=== PATIENT | female | born 1980 | race African-American/Black ===

== ENCOUNTER 2024-09-27 03:03 | Inpatient (IN) | payer OTHER, SELFPAY ==
[2024-09-26 19:55] VITALS: BP 155/87
[2024-09-26 20:23] LABS: Urine Albumin 1+ (Neg - Trace); Urine Bilirubin Negative (Negative); Urine Character Clear (Clear); Urine Color Yellow; Urine Glucose Negative (Negative); Urine Ketone 3+ (Negative); Urine Leukocyte 2+ (Negative); Urine Nitrite Negative (Negative); Urine Occult Blood 2+ (Negative); Urine Urobilinogen 1+ (Neg - 1+)
[2024-09-26 20:34] LABS: HCG, Serum Qualitative Screen Negative
[2024-09-26 20:34] LABS: COVID-19 Antigen Negative (Negative)
[2024-09-26 20:39] LABS: ALT (SGPT) 17 U/L (0-35); AST (SGOT) 19 U/L (14-36); Albumin 4.1 g/dl (3.5-5.0); Alkaline Phosphatase 76 U/L (38-126); Blood Urea Nitrogen 7 mg/dl (7-17); Calcium 9.5 mg/dl (8.4-10.2); Carbon Dioxide 25 mmol/L (22-30); Chloride 97 mmol/L (98-107); Glucose 103 mg/dl (70-99); Potassium 4.4 mmol/L (3.5-5.1); Sodium 132 mmol/L (135-145); Total Bilirubin 0.9 mg/dl (0.2-1.3); Total Protein 7.6 g/dl (6.3-8.2); eGFR > 60.00
[2024-09-26 20:40] LABS: Lipase 46 U/L (23-300)
[2024-09-26 20:40] LABS: Urine Squamous Cell 26-30 /LPF (Few)
[2024-09-26 20:41] LABS: Urine Bacteria Few (Negative); Urine White Cell 40-50 /HPF (0-5)
[2024-09-26 21:07] LABS: % Basophils 0.4 % (0-2); % Eosinophils 0.2 % (0-6); % Immature Granulocytes 0.5 % (0-0.5); % Lymphocytes 9.9 % (20.5-51.1); % Monocytes 6.2 % (1.7-9.3); % Neutrophils 82.8 % (42.2-75.2); Absolute Basophils 0.1 10^3/uL (0-0.2); Absolute Immature Granulocytes 0.1 10^3/uL (0-0.05); Absolute Lymphocytes 1.3 10^3/uL (1.2-3.4); Absolute Monocytes 0.8 10^3/uL (0.1-0.6); Absolute Neutrophils 10.9 10^3/uL (1.4-6.5); Hematocrit 33.1 % (37.0-47.0); Hemoglobin 10.1 g/dL (12.0-16.0); Mean Corp Hgb Conc. 30.5 g/dL (33.0-37.0); Mean Corpuscular Hgb 23.1 pg (27.0-31.0); Mean Corpuscular Volume 75.7 fL (81.0-99.0); Mean Platelet Volume 9.1 fL (7.4-10.4); Nucleated Red Blood Cells % 0 %; Platelet Count 402 10^3/uL (130-400); Red Blood Cell Count 4.37 10^6/uL (4.20-5.40); White Blood Cell Count 13.2 10^3/uL (4.8-10.8)
[2024-09-26 21:10] LABS: Anisocytosis 2+; Macrocytosis 2+; Normal RBC Morphology No
[2024-09-26 21:11] LABS: Polychromasia Occasional; Spherocytes 1+; Stomatocytes 1+; Target Cells 2+
--- NOTE | 2024-09-26 21:17 | ED.GENMED ---
History of Present Illness
<Mell Campos PA-C - Last Filed: 09/27/24 12:04>
General
Chief Complaint: Abdominal Symptoms
Source: patient
Exam Limitations: none
Time Seen by Provider: 09/26/24 20:44
Nursing documentation reviewed up to this point in time: agreed with
History of Present Illness
History of Present Illness:
Patient is a 44-year-old female presenting to the emergency department for evaluation of left lower abdominal pain. Patient states symptoms started gradually on Wednesday although have persisted. She states pain initially started as a dull ache
although has worsened and become more constant. Patient denies any radiation of pain into her back although she has felt some radiation into her left leg today. Patient states she felt very 'chilly 'and felt as if she had a fever. Patient denies
any dysuria or hematuria. Patient denies any abnormal vaginal discharge or bleeding. No chest pain or shortness of breath. No diarrhea or constipation.
Patient does have a history of anemia for which she receives intermittent blood transfusions under the care of a zigzag elastic attacher.
Patient states she has not seen an ADAPTED PHYSICAL EDUCATION TEACHER since her son was born 14 years ago.
Past History
<Mell Campos PA-C - Last Filed: 09/27/24 12:04>
Past History
ED Past Medical History: None
ED Past Surgical History: Cholecystectomy, and Other (Gastric bypass)
Social History
Personal:
Living: with family
Employment: Employed
Review of Systems
<Mell Campos PA-C - Last Filed: 09/27/24 12:04>
Review of Systems
Allergies reviewed?: Yes
All Other Systems: ROS reviewed and negative except as documented in HPI and ROS
Phy Exam
<Mell Campos PA-C - Last Filed: 09/27/24 12:04>
Physical Exam
Physical Exam:
Vitals: Temp 100.5. Mildly tachycardic.
General: Patient is in mild distress due to pain.
Skin: Warm and dry, no rashes or lesions
Head: Normocephalic, atraumatic
Eyes: Sclera nonicteric. EOMs intact. No nystagmus.
Throat: Protecting airway
Neck: Normal ROM, no cervical spine tenderness, no meningismus
Cardiac: Regular rate and rhythm, no murmurs.
Pulm: Normal respiratory effort, no wheezes, rales, rhonchi heard on exam.
Abdomen: Large body habitus. Abdomen soft. Mild tenderness in left lower abdomen/suprapubic region without rebound tenderness or guarding. No CVA tenderness bilaterally
Pelvic: Bimanual exam limited due to body habitus although no CMT elicited
Extremities: No evidence of cyanosis or edema. Palpable DP pulses bilateral
Neuro: AAOx3. Grossly intact.
Psychiatric: Normal affect.
Course
<Mell Campos PA-C - Last Filed: 09/27/24 12:04>
Orders/Labs/Results
Orders:
Orders
09/26/24 19:56
Test Result ONCE
09/26/24 20:05
COVID-19 Antigen Urgent
Source: Nasal Swab
Influenza A+B Rapid Molecular Urgent
FELICITAS Source: Nasal Swab
Specimen Description:
09/26/24 20:06
C-Reactive Protein Urgent
Comment: ADDED
Complete Blood Count/With Diff Urgent
Comprehensive Metabolic Panel Urgent
HCG, Serum Qualitative Screen Urgent
Lipase Urgent
09/26/24 20:13
Urinalysis Reflex To Culture Urgent
Date Specimen was Collected: 09/26/24
Time Specimen was Collected: 19:56
Urine Microscopic Reflex Cult Urgent
Urine Culture Urgent
FELICITAS Source: U
Specimen Description:
Date Specimen was Collected: 09/26/24
Time Specimen was Collected: 19:56
09/26/24 21:16
0.9% Sodium Chloride 1000 ml [Nss] 1,000 ml IV BOLUS
Ketorolac [Toradol] 15 mg IV NOW STA
09/26/24 21:17
CT Abd/Pel (IV only)-DH only Urgent
Comment:
Reason For Exam: LLQ pain, fever
09/26/24 21:43
Lactic Acid Q4H
Comment: CANCEL 2nd LACTIC ACID IF 1st LACTIC ACID IS LESS THAN 2
09/26/24 23:13
US Pelvis Only (non-obstetric) Urgent
Comment:
Reason For Exam: eval for torsion; abnormal CT
09/26/24 23:28
Acetaminophen [Tylenol] 1,000 mg PO NOW STA
09/27/24 00:43
Add On- LAB Urgent
Tests Added?: gc/chlamydia URINE by PCR
09/27/24 00:57
Add On- LAB Urgent
Tests Added?: cRP
09/27/24 02:03
CefTRIAXone [Rocephin] 1,000 mg IV NOW STA
Doxycycline [Vibramycin] 100 mg PO NOW STA
MetroNIDAZOLE 500 MG/100 ML [Flagyl 500 mg] 100 ml IV NOW
09/27/24 02:28
Admit/Transfer Patient As Directed
Co-Sign Provider:
Level of Care: Inpatient admission
Assign to:: Medical/Surgical
Physician / Group: [facility]
Transfer to: Medical/Surgical
Diagnosis: PID/TOA
Patient Condition: Good
Reason for Hospitalization: iv abx
Expected length of stay greater than two midnights?: No
ELOS- Estimated Length of Stay in days: 2
I certify the patient meets the requirements for IP care: Yes
PRN Pain Medication Management As Directed
May give lesser potent ordered pain med per pt: Yes
preference::
Protocol:: Medication orders for pain may be administered in a
manner that supports deferring to patient preference
when the pt is:
- Requesting an ordered lesser potent pain medication.
Least to most potent pain medications are defined
as: acetaminophen < NSAID < tramadol < opioids
(morphine, oxycodone, hydromorphone).
- Requesting a lesser dose of the same medication IF
ORDERED.
- Requesting a less intrusive route of administration
if both routes are prescribed by the provider (PO <
IV).
09/27/24 04:00
Acetaminophen [Tylenol] 1,000 mg PO Q6HPRN PRN
Ibuprofen [Motrin] 600 mg PO Q6HPRN PRN
Venous Foot Pumps DIRECTED
Location: Bilateral feet
09/27/24 04:00
DX Deep Vein Thrombosis Video Routine
09/27/24 Breakfast
Regular
At Your Request: Full Participation
Does patient need a safe tray?: No
09/27/24 07:52
Complete Blood Count/With Diff IN AM
09/27/24 08:00
Doxycycline [Vibramycin] 100 mg PO Q12
MetroNIDAZOLE [Flagyl] 500 mg PO BID
09/27/24 12:00
MetroNIDAZOLE 500 MG/100 ML [Flagyl 500 mg] 100 ml IV Q12H
09/27/24 20:06
Chlamydia/GC by PCR Urgent
FELICITAS Source: U
Specimen Description:
Source:: URINE
Date Specimen was Collected: 09/26/24
Time Specimen was Collected: 19:56
Comment: Add on per Omar Franklin
09/28/24 00:00
CefTRIAXone [Rocephin] 1,000 mg IV Q24H
Abnormal Lab Results
09/26/24 09/26/24
20:06 20:13
WBC 13.2 H 10^3/uL
(4.8-10.8)
Hgb 10.1 L g/dL
(12.0-16.0)
Hct 33.1 L %
(37.0-47.0)
MCV 75.7 L fL
(81.0-99.0)
MCH 23.1 L pg
(27.0-31.0)
MCHC 30.5 L g/dL
(33.0-37.0)
Plt Count 402 H 10^3/uL
(130-400)
Abs Immat Gran (auto) 0.1 H 10^3/uL
(0-0.05)
Absolute Neuts (auto) 10.9 H 10^3/uL
(1.4-6.5)
Absolute Monos (auto) 0.8 H 10^3/uL
(0.1-0.6)
Neutrophils % 82.8 H %
(42.2-75.2)
Lymphocytes % 9.9 L %
(20.5-51.1)
Sodium 132 L mmol/L
(135-145)
Chloride 97 L mmol/L
(98-107)
Glucose 103 H mg/dl
(70-99)
C-Reactive Protein 136.50 H mg/L
(0.0-10.00)
Urine Ketones 3+ A
(Negative)
Ur Occult Blood Reflex 2+ A
(Negative)
Leukocyte Esterase Rfl 2+ A
(Negative)
Urine RBC 7-10 A /HPF
(0-2)
Urine WBC (Reflex) 40-50 A /HPF
(0-5)
Urine Bacteria (Reflex) Few A
(Negative)
Urine Albumin (Reflex) 1+ A
(Neg - Trace)
09/26/24 20:06
09/26/24 20:06
Vital Signs
Initial and Last Documented VS:
Initial Vital Signs
Temp Pulse Resp BP Pulse Ox
100.5 F H 106 18 155/87 100
09/26/24 19:55 09/26/24 19:55 09/26/24 19:55 09/26/24 19:55 09/26/24 19:55
Last Documented Vital Signs
Temp Pulse Resp BP Pulse Ox
97.9 F 81 18 135/75 100
09/27/24 07:00 09/27/24 07:00 09/27/24 07:00 09/27/24 07:00 09/27/24 07:00
<Omar Franklin DO - Last Filed: 09/27/24 02:48>
Orders/Labs/Results
Orders:
Orders
09/26/24 19:56
Test Result ONCE
09/26/24 20:05
COVID-19 Antigen Urgent
Source: Nasal Swab
Influenza A+B Rapid Molecular Urgent
FELICITAS Source: Nasal Swab
Specimen Description:
09/26/24 20:06
C-Reactive Protein Urgent
Comment: ADDED
Complete Blood Count/With Diff Urgent
Comprehensive Metabolic Panel Urgent
HCG, Serum Qualitative Screen Urgent
Lipase Urgent
09/26/24 20:13
Urinalysis Reflex To Culture Urgent
Date Specimen was Collected: 09/26/24
Time Specimen was Collected: 19:56
Urine Microscopic Reflex Cult Urgent
Urine Culture Urgent
FELICITAS Source: U
Specimen Description:
Date Specimen was Collected: 09/26/24
Time Specimen was Collected: 19:56
09/26/24 21:16
0.9% Sodium Chloride 1000 ml [Nss] 1,000 ml IV BOLUS
Ketorolac [Toradol] 15 mg IV NOW STA
09/26/24 21:17
CT Abd/Pel (IV only)-DH only Urgent
Comment:
Reason For Exam: LLQ pain, fever
09/26/24 21:43
Lactic Acid Q4H
Comment: CANCEL 2nd LACTIC ACID IF 1st LACTIC ACID IS LESS THAN 2
09/26/24 23:13
US Pelvis Only (non-obstetric) Urgent
Comment:
Reason For Exam: eval for torsion; abnormal CT
09/26/24 23:28
Acetaminophen [Tylenol] 1,000 mg PO NOW STA
09/27/24 00:43
Add On- LAB Urgent
Tests Added?: gc/chlamydia URINE by PCR
09/27/24 00:57
Add On- LAB Urgent
Tests Added?: cRP
09/27/24 02:03
CefTRIAXone [Rocephin] 1,000 mg IV NOW STA
Doxycycline [Vibramycin] 100 mg PO NOW STA
MetroNIDAZOLE 500 MG/100 ML [Flagyl 500 mg] 100 ml IV NOW
09/27/24 02:28
Admit/Transfer Patient As Directed
Co-Sign Provider:
Level of Care: Inpatient admission
Assign to:: Medical/Surgical
Physician / Group: [facility]
Transfer to: Medical/Surgical
Diagnosis: PID/TOA
Patient Condition: Good
Reason for Hospitalization: iv abx
Expected length of stay greater than two midnights?: No
ELOS- Estimated Length of Stay in days: 2
I certify the patient meets the requirements for IP care: Yes
PRN Pain Medication Management As Directed
May give lesser potent ordered pain med per pt: Yes
preference::
Protocol:: Medication orders for pain may be administered in a
manner that supports deferring to patient preference
when the pt is:
- Requesting an ordered lesser potent pain medication.
Least to most potent pain medications are defined
as: acetaminophen < NSAID < tramadol < opioids
(morphine, oxycodone, hydromorphone).
- Requesting a lesser dose of the same medication IF
ORDERED.
- Requesting a less intrusive route of administration
if both routes are prescribed by the provider (PO <
IV).
09/27/24 04:00
Acetaminophen [Tylenol] 1,000 mg PO Q6HPRN PRN
Ibuprofen [Motrin] 600 mg PO Q6HPRN PRN
Venous Foot Pumps DIRECTED
Location: Bilateral feet
09/27/24 04:00
DX Deep Vein Thrombosis Video Routine
09/27/24 Breakfast
Regular
At Your Request: Full Participation
Does patient need a safe tray?: No
09/27/24 07:52
Complete Blood Count/With Diff IN AM
09/27/24 08:00
Doxycycline [Vibramycin] 100 mg PO Q12
MetroNIDAZOLE [Flagyl] 500 mg PO BID
09/27/24 12:00
MetroNIDAZOLE 500 MG/100 ML [Flagyl 500 mg] 100 ml IV Q12H
09/27/24 20:06
Chlamydia/GC by PCR Urgent
FELICITAS Source: U
Specimen Description:
Source:: URINE
Date Specimen was Collected: 09/26/24
Time Specimen was Collected: 19:56
Comment: Add on per Omar Franklin
09/28/24 00:00
CefTRIAXone [Rocephin] 1,000 mg IV Q24H
Abnormal Lab Results
09/26/24 09/26/24
20:06 20:13
WBC 13.2 H 10^3/uL
(4.8-10.8)
Hgb 10.1 L g/dL
(12.0-16.0)
Hct 33.1 L %
(37.0-47.0)
MCV 75.7 L fL
(81.0-99.0)
MCH 23.1 L pg
(27.0-31.0)
MCHC 30.5 L g/dL
(33.0-37.0)
Plt Count 402 H 10^3/uL
(130-400)
Abs Immat Gran (auto) 0.1 H 10^3/uL
(0-0.05)
Absolute Neuts (auto) 10.9 H 10^3/uL
(1.4-6.5)
Absolute Monos (auto) 0.8 H 10^3/uL
(0.1-0.6)
Neutrophils % 82.8 H %
(42.2-75.2)
Lymphocytes % 9.9 L %
(20.5-51.1)
Sodium 132 L mmol/L
(135-145)
Chloride 97 L mmol/L
(98-107)
Glucose 103 H mg/dl
(70-99)
C-Reactive Protein 136.50 H mg/L
(0.0-10.00)
Urine Ketones 3+ A
(Negative)
Ur Occult Blood Reflex 2+ A
(Negative)
Leukocyte Esterase Rfl 2+ A
(Negative)
Urine RBC 7-10 A /HPF
(0-2)
Urine WBC (Reflex) 40-50 A /HPF
(0-5)
Urine Bacteria (Reflex) Few A
(Negative)
Urine Albumin (Reflex) 1+ A
(Neg - Trace)
09/26/24 20:06
09/26/24 20:06
Vital Signs
Initial and Last Documented VS:
Initial Vital Signs
Temp Pulse Resp BP Pulse Ox
100.5 F H 106 18 155/87 100
09/26/24 19:55 09/26/24 19:55 09/26/24 19:55 09/26/24 19:55 09/26/24 19:55
Last Documented Vital Signs
Temp Pulse Resp BP Pulse Ox
97.9 F 81 18 135/75 100
09/27/24 07:00 09/27/24 07:00 09/27/24 07:00 09/27/24 07:00 09/27/24 07:00
<Mell Campos PA-C - Last Filed: 09/27/24 12:04>
MDM/Problems Addressed
Differential Diagnosis Includes:
Not limited to: Cystitis, pyelonephritis, diverticulitis, ovarian cyst, etc.
MDM/Problems Addressed:
44-year-old female presenting with left lower abdominal pain for 3 days. Also notes fever and fatigue. No vomiting, urinary symptoms, abnormal vaginal bleeding/discharge. Patient mildly tachycardic on arrival. Temp 100.5. Physical exam as
above. Abdomen is soft with mild to moderate tenderness in left lower abdomen/suprapubic region. She has no CVA tenderness. no rebound tenderness or guarding. Cardio/pulmonary assessment remarkable. Basic labs initiated in triage significant for
a leukocytosis of 13.2 with left. Urine appears infected with 40-50 WBCs, 2+ leukocyte esterase, although many squamous cells noted making contamination a possibility. Will give patient IV fluids, Toradol for pain. Concern for infectious process
given patient is mildly febrile with leukocytosis�possible urinary source versus other intra-abdominal source including diverticulitis. Will check CT abdomen/pelvis for evaluation.
Update 11:15 PM: CT abdomen/pelvis shows tubular structure in left adnexa measuring 7 x 5 cm. There is concern for possible ovarian torsion�will obtain pelvic ultrasound for better visualization.
Update 12:30AM:US reveals loculated/ complex cyst in left adnexal region similar to seen on CT however good flow documented to b/l ovariares. At this point - given patient febrile upon arrival with leukocytosis concern for underlying infectious
process including PID and TOA. Will add GC/Chlamydia to urine. Pain has improved following toradol. Will consult FLUMER for further input/disposition.
Patient signed out to attending physician pending FLUMER consult
Chronic conditions affecting care:
Anemia
<Mell R. Derham, PA-C - Last Filed: 09/27/24 12:04>
*Radiology
Radiology exam reviewed: radiology read reviewed
*Pulse Oximetry
Patient hypoxic: no
*EKG
Interpreted by ED Provider?: NA
*Offshore Wind Operations Manager Interpretation
Rate: Offshore Wind Operations Manager- N/A
*Critical Care Note
Total Time (30-74mins, 75-104mins- exclusive of procedures): Not Applicable
ED Attending Note
<Mell Campos PA-C - Last Filed: 09/27/24 12:04>
-
Portions of this chart may have been created with voice recognition software.� Occasional wrong word or��sound alike� substitutions may have occurred due to the inherent limitations of voice recognition software.
<Omar Franklin DO - Last Filed: 09/27/24 02:48>
ED Attending Note
Patient seen and examined by attending physician: Yes
I performed the substantive portion of visit, reviewed & personally made and approve the management plan that is documented in note by myself or ANA.: Yes
ED Attending Note:
Leukocytosis and low-grade fever noted. Abnormal imaging. Dr. Connors evaluated the patient in the ED. Plan is to admit to the hospital for IV antibiotics. GC chlamydia pending.
Discharge Plan
Departure
Patient Disposition: Admit
Date of Disposition: 09/27/24
Time of Disposition: 02:02
Presentation/result/management discussed w/ accepting MD/DO: dr connors
Discharge Problem:
Abnormal pelvic ultrasound
Interventions
Interventions:
*Risk Screen - Suicide Last Done: 09/27/24 04:03
*General Assessment Last Done: 09/26/24 19:59
*Neglect/Abuse Screening Last Done: 09/26/24 19:59
*ED- Fall Risk Assessment Last Done: 09/26/24 22:30
*ED COVID-19 Vaccine History Last Done: 09/27/24 04:03
*Nursing Disposition Last Done: 09/27/24 03:45
KZ-Nslgxd-Qikwitcqpl Assessment Last Done: 09/26/24 22:30
Discharge Date and Time
Discharge Date/Time: 09/27/24 03:45
[2024-09-26] MEDS: TORADOL 15 MG IV (21:55)
[2024-09-26] MEDS: NSS 1000 IV (21:56)
[2024-09-26 22:14] LABS: Lactic Acid 0.8 mmol/L (0.7-2.0)
[2024-09-27] VITALS: BP 110/65
[2024-09-27] MEDS: TYLENOL 1000 MG PO ×4 (00:23→20:23)
[2024-09-27] MEDS: VIBRAMYCIN 100 MG PO ×3 (02:29→20:23)
[2024-09-27] MEDS: ROCEPHIN 1000 MG IV (02:29)
[2024-09-27] MEDS: FLAGYL 500 MG 100 IV ×2 (02:30→11:36)
--- NOTE | 2024-09-27 03:00 | W.PN.OBG.DWH ---
Today's Communication / Plan
-
admit for iv abx, doxycyline po and flagyl iv
monitor sxs
venous foot pumps
Assessment/Plan
-
LLQ pain, low grade temp, leucocytosis
imaging studies suggest hydrosalpinx
gc/chlam, ur cx pending
Subjective Data
-
H and P dictated
LLQ pain improved with Tylenol and toradol
Objective Data
-
Laboratory Results
09/26/24 20:06
09/26/24 20:06
Vital Signs
Temp Pulse Resp BP Pulse Ox
98.3 F 84 18 110/65 97
09/27/24 00:00 09/27/24 00:00 09/27/24 00:00 09/27/24 00:00 09/27/24 00:00
ct scan and pelvic us suggest PID, TOA. 5 x7 cm structure muticystic ov or possible hydrosalpinx. US confirms flow to ovaries. studies limited due to body habitus
abd exam benign
[2024-09-27 04:25] VITALS: BP 117/67; BMI 43.3
[2024-09-27 07:00] VITALS: BP 135/75
[2024-09-27 09:09] LABS: % Basophils 0.3 % (0-2); % Eosinophils 0.6 % (0-6); % Immature Granulocytes 0.3 % (0-0.5); % Monocytes 9.4 % (1.7-9.3); % Neutrophils 80.4 % (42.2-75.2); Absolute Eosinophils 0.1 10^3/uL (0-0.7); Absolute Lymphocytes 0.8 10^3/uL (1.2-3.4); Absolute Monocytes 0.9 10^3/uL (0.1-0.6); Absolute Neutrophils 7.5 10^3/uL (1.4-6.5); Hemoglobin 9.3 g/dL (12.0-16.0); Mean Corpuscular Hgb 23.7 pg (27.0-31.0); Mean Corpuscular Volume 76.5 fL (81.0-99.0); Mean Platelet Volume 10.1 fL (7.4-10.4); Nucleated Red Blood Cells % 0 %; Platelet Count 367 10^3/uL (130-400); Red Blood Cell Count 3.92 10^6/uL (4.20-5.40); White Blood Cell Count 9.3 10^3/uL (4.8-10.8)
--- NOTE | 2024-09-27 10:43 | CM ---
human services manager reviewed patient's chart and met with patient and patient reports that she lives with her fiancee, is independent with adl's and ambulation, no dme, patient drives, home when stable, no needs.
PCP: Fidelia Juares
Pharmacy: [facility]
Plan; Home when stable, no needs.
--- NOTE | 2024-09-27 11:16 | W.PN.OBG.DWH ---
Today's Communication / Plan
-
Continue with antibiotics
Discuss with IR, consult if necessary
Assessment/Plan
-
Probable TOA-Pt has only had less than 12 hours of antibiotics, so not surprised no significant clinical improvement, but patient certainly not getting worse, WBC improved. Will f/u with Interventional radiology to discuss possibility of IR
directed drainage. Reviewed with patient.
Subjective Data
-
Patient still with pain, not worse. Improved with Tylenol earlier this AM. Is asking to eat
No nausea or vomiting. No vaginal bleeding
Objective Data
-
Laboratory Results
09/27/24 07:52
09/26/24 20:06
Vital Signs
Temp Pulse Resp BP Pulse Ox
97.9 F 81 18 135/75 100
09/27/24 07:00 09/27/24 07:00 09/27/24 07:00 09/27/24 07:00 09/27/24 07:00
Abdomen-obese, soft, nondistended, mildly tender to deep palpation of LEFT lower quadrant, otherwise nontender, no rebound or guarding. decreased bowel sounds
Extremities- w/o calf pain
reviewed radiology studies with radiologist, most likely diagnosis is abscess
--- NOTE | 2024-09-27 11:24 | W.PN.OBG.DWH ---
Today's Communication / Plan
-
Continue with antibiotics
Discuss with IR, consult if necessary
Assessment/Plan
-
Probable TOA-Pt has only had less than 12 hours of antibiotics, so not surprised no significant clinical improvement, but patient certainly not getting worse, WBC improved. Will f/u with Interventional radiology to discuss possibility of IR
directed drainage. Reviewed with patient.
Subjective Data
-
Patient still with pain, not worse. Improved with Tylenol earlier this AM. Is asking to eat
No nausea or vomiting. No vaginal bleeding
Objective Data
-
Laboratory Results
09/27/24 07:52
09/26/24 20:06
Vital Signs
Temp Pulse Resp BP Pulse Ox
97.9 F 81 18 135/75 100
09/27/24 07:00 09/27/24 07:00 09/27/24 07:00 09/27/24 07:00 09/27/24 07:00
[2024-09-27] MEDS: MOTRIN 600 MG PO (13:23)
[2024-09-27 23:25] VITALS: BP 122/65
[2024-09-28] MEDS: FLAGYL 500 MG 100 IV ×3 (00:49→23:56)
[2024-09-28] MEDS: ROCEPHIN 1000 MG IV ×2 (00:49→23:56)
[2024-09-28] MEDS: STERILE WATER FOR INJECTION 10 ML IV ×2 (00:49→23:56)
[2024-09-28] MEDS: ZOFRAN 4 MG IV (00:50)
--- NOTE | 2024-09-28 01:54 | W.PN.UPDATE ---
Update Note
Progress Note Update
Patient seen to confirm code status. Explained Full code vs DNR, patient verbalized understanding, questions answered. Patient wishes to be FULL CODE. Order updated to FULL CODE status.
[2024-09-28] MEDS: TYLENOL 1000 MG PO ×2 (06:22→20:22)
[2024-09-28] MEDS: VIBRAMYCIN 100 MG PO ×2 (07:20→20:17)
[2024-09-28] MEDS: MOTRIN 600 MG PO (07:20)
[2024-09-28 07:51] LABS: % Basophils 0.4 % (0-2); % Immature Granulocytes 0.4 % (0-0.5); % Monocytes 6.3 % (1.7-9.3); % Neutrophils 87.9 % (42.2-75.2); Absolute Lymphocytes 0.4 10^3/uL (1.2-3.4); Absolute Monocytes 0.5 10^3/uL (0.1-0.6); Absolute Neutrophils 7.3 10^3/uL (1.4-6.5); Hematocrit 28.6 % (37.0-47.0); Hemoglobin 8.8 g/dL (12.0-16.0); Mean Corp Hgb Conc. 30.8 g/dL (33.0-37.0); Mean Corpuscular Hgb 23.3 pg (27.0-31.0); Mean Corpuscular Volume 75.7 fL (81.0-99.0); Mean Platelet Volume 9.9 fL (7.4-10.4); Nucleated Red Blood Cells % 0 %; Platelet Count 372 10^3/uL (130-400); Red Blood Cell Count 3.78 10^6/uL (4.20-5.40); White Blood Cell Count 8.2 10^3/uL (4.8-10.8)
[2024-09-28 07:55] VITALS: BP 130/67
--- NOTE | 2024-09-28 10:45 | CM ---
Home when stable, no needs.
Plan; Home when stable, no needs.
--- NOTE | 2024-09-28 11:07 | W.PN.GYN ---
Today's Communication / Plan
-
continue antibiotics
IR consult for possible drainage of TOA
Physician Note
-
S: She says she is feeling better but still has some left lower quadrant burning/aching. She is taking Tylenol and Motrin with improvement. Denies fevers or chills, nausea, or vomiting.
O:
BP 130/67, Afebrile, VSS
General: resting in bed, well appearing
Abd: obese, nontender to palpation, no rebound/rigidity or guarding
Ext: nontender
Labs: 8.2>8.8/28.6<372
A/P: 44yo with probable TOA
- continue Rocephin, Doxycycline, and Flagyl
- WBC continues to decrease. Patient is clinically improving, though still has some LLQ pain
- IR consulted for possible drainage. Plan reviewed with patient
[2024-09-28 14:40] VITALS: BP 124/65; BP_SYST 73
--- NOTE | 2024-09-28 16:03 | W.PN.UPDATE ---
Update Note
Progress Note Update
CT guided aspiration of left adnexal fluid collection yielded 25 cc of clear serous fluid. Since fluid was not purulent, no drain was placed.
Fluid sent for lab analysis.
[2024-09-28 16:30] VITALS: BP 133/71
[2024-09-28 23:00] VITALS: BP 109/72
[2024-09-29] MEDS: TYLENOL 1000 MG PO ×2 (03:12→09:17)
[2024-09-29] MEDS: VIBRAMYCIN 100 MG PO (08:11)
[2024-09-29 08:30] VITALS: BP 110/57
[2024-09-29 08:37] LABS: % Basophils 0.5 % (0-2); % Eosinophils 0.5 % (0-6); % Immature Granulocytes 0.5 % (0-0.5); % Lymphocytes 10.5 % (20.5-51.1); % Monocytes 11.5 % (1.7-9.3); % Neutrophils 76.5 % (42.2-75.2); Absolute Lymphocytes 0.9 10^3/uL (1.2-3.4); Absolute Neutrophils 6.8 10^3/uL (1.4-6.5); Hematocrit 31.4 % (37.0-47.0); Hemoglobin 9.8 g/dL (12.0-16.0); Mean Corp Hgb Conc. 31.2 g/dL (33.0-37.0); Mean Corpuscular Hgb 23.6 pg (27.0-31.0); Mean Corpuscular Volume 75.7 fL (81.0-99.0); Mean Platelet Volume 9.5 fL (7.4-10.4); Nucleated Red Blood Cells % 0 %; Platelet Count 309 10^3/uL (130-400); Red Blood Cell Count 4.15 10^6/uL (4.20-5.40); White Blood Cell Count 8.9 10^3/uL (4.8-10.8)
--- NOTE | 2024-09-29 10:49 | W.PN.OBG.DWH ---
Addendum entered and electronically signed by Jenelle Connors MD 10/16/24 15:04:
chart reviewed
findings not c/w sepsis
Original Note:
Today's Communication / Plan
-
dc home
Assessment/Plan
-
LLQ, TOA on ct, pelvic us
s/p drainage of serous fluid, path pending
dc home on po abx doxy and flagyl for two weeks
f/u visit in 4 wks
continue with tyl and motrin for pain
Subjective Data
-
slep last night. no bm since admission, decr po. taking tylenol, pain improved
Objective Data
-
Laboratory Results
09/29/24 08:16
09/26/24 20:06
Vital Signs
Temp Pulse Resp BP Pulse Ox
98 F 82 18 110/57 98
09/29/24 08:30 09/29/24 08:30 09/29/24 08:30 09/29/24 08:30 09/29/24 08:30
lungs cl
cor rrr
abd obese +bs soft, nt, bandage in place
ext nt
--- NOTE | 2024-09-29 11:56 | CM ---
Chart reviewed, home no needs.
Plan; Home no needs.
[2024-09-29] MEDS: FLAGYL 500 MG PO (12:38)
[2024-09-29 12:55] VITALS: BP 111/64
--- NOTE | 2024-10-02 12:27 | W.DS.TRANS ---
DC Summary - [employer]
-
Discharge Instructions:
Discharge Diagnosis/Procedures hydrosalpinx
Diet No restrictions
Activity No restrictions
Driving Restrictions As prior to admission
Instructions:
Stand-Alone Forms:
Changes to Home Medications: No
Discharge Medications:
DC Medications w/original date entered in [facility]
diclofenac sodium 75 mg tablet,delayed release 75 mg PO BID Anti-Inflammatory 09/28/24
tamsulosin 0.4 mg capsule 0.4 mg PO DAILY Urinary Issue 09/28/24
doxycycline hyclate 100 mg capsule 100 mg PO Q12 #28 caps 09/29/24
metronidazole 500 mg tablet 500 mg PO Q12H #28 tabs 09/29/24
Home Medication Changes
Pending Results: Yes
Total time spent discharging patient (in min): 30
--- NOTE | 2024-10-02 14:40 | PN.CDI ---
CDI
- -
CDI:
Physician Documentation Request
Admit Date: 09/27/24 03:03
Dear Doctor Waylon
Please review the following and provide your response in the progress notes.
Clinical Indicators:
Patient admitted with Salpingitis.
Selected entries 09/27
T 100.5 Pulse 106 WBC 13.2
Please, clarify which of the following most accurately describes the status of the patient's condition:
�Sepsis
-Systemic manifestations of infection, with 2 or more SIRS criteria which include:
-Fever > 100.4 degrees F or hypothermia < 96.8 degrees F
-Leukocytosis WBC > 12,000 or leukopenia, WBC < 4,000, or > 10% bands
-Tachycardia- > 90 beats/minute
-Tachypnea- RR > 20 breaths/minute or PaCO2 < 32mmHg
Source: Merck Manual 2013
Chronic salpingitis only
Other
Use of terms such as suspected, likely, concern for, or probable (associated with a specific diagnosis that is being evaluated, monitored, or treated as if it exists) are acceptable and can be coded in the inpatient setting, when documented at the
time of discharge.
Thank you,
Isabella Albert
Endodontist Inpatient.
Please use your independent medical judgment in providing your response.
== END 2024-09-29 17:45 | disposition home or self-care (01) | DRG 759 ==
LOC: 4 WEST ACU 03:03
PROVIDERS: Obstetrics & Gynecology; Physician Assistant; Radiology Vascular & Interventional Radiology; Student in an Organized Health Care Education/Training Program; ADMITTING PHYSICIAN Obstetrics & Gynecology; EMERGENCY PHYSICIAN Emergency Medicine; FAMILY PHYSICIAN Family Medicine
PROC: 0U913ZZ Drainage of Left Ovary, Percutaneous Approach (ICD-10-PCS; 2024-09-28)
DX: N70.11 Chronic salpingitis (principal); D64.9 Anemia, unspecified; D72.829 Elevated white blood cell count, unspecified; Z11.52 Encounter for screening for COVID-19; Z98.84 Bariatric surgery status
CPT/HCPCS: 49406; 74177; 76856; 80053; 81003; 81015; 83605; 83690; 84703; 85025; 86140; 87015; 87070; 87086; 87205; 87491; 87502; 87591; 87811; 96361; 96374; 99152; 99285; Q9967